=== PATIENT | male | born 1960 | race American Indian/Alaskan Native ===

== ENCOUNTER 2018-01-20 10:09 | Day surgery (SDC) | payer OTHER ==
[2017-07-07 12:53] VITALS: BMI 28.2
[2018-01-20] MEDS ORDERED: Midazolam 2 MG/2 ML VIAL ONE ×2 (14:04→14:29)
[2018-01-20] MEDS ORDERED: Iodixanol 320 MG/ML 200 ML BOTTLE IV ONE (14:05)
[2018-01-20] MEDS ORDERED: Lidocaine 2% MPF (5 ml) Inj ONE (14:05)
--- NOTE | 2018-01-21 12:01 | VAS ---
DATE: 01/20/2018 INDICATIONS: Mr. 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 The patient underwent distal abdominal aortogram for evaluation of underlying PVD. PROCEDURE PERFORMED: Distal abdominal aortogram with bilateral iliac runoff, selective bilateral iliofemoral angiogram with runoff, a 5-Afghan right femoral arterial access, and Mynx closure device for hemostasis. TECHNIQUES OF PROCEDURE: After obtaining informed consent, the patient was brought to the cardiac cath suite in post-absorptive and non-sedated state. The patient was prepped and draped in the usual sterile fashion, 2% lidocaine was used for infiltration of anesthesia. Using modified Seldinger technique, a 5-Afghan sheath was introduced into the right femoral artery. A right iliofemoral angiogram was performed and digital subtraction angiographic views of [id number] and right foot profile was obtained. Subsequently, a modified hook catheter was advanced into the abdominal aorta. Abdominal aortogram with bilateral iliac runoff was performed. The catheter was then advanced across the aortic bifurcation to the left common femoral artery. Digital subtraction angiographic views of the left SFA, left popliteal, left [id number], and the left foot profile was obtained. ANGIOGRAPHIC FINDINGS: Bilateral common iliac patent, bilateral external iliac patent, bilateral SFA and profunda femoris patent, bilateral popliteal is patent, bilateral three-vessel runoff below the knee, distal small vessel disease. IMPRESSION: Microvascular dysfunction, patent microcirculation. RECOMMENDATION: The patient can be discharged home in three hours. Aggressive medical management. Keep the patient on aspirin, Plavix, statins, VALENTIN inhibitors. The patient is to follow with Dr. Bertrand in one to two weeks' time. Thank you Dr. Mays, for letting me participate in the care of your patient. Anish Bertrand MD cc: Silvano Mays DPM
== END 2018-01-20 19:20 | disposition home or self-care (01) ==
LOC: C.CATHLAB 10:09
PROVIDERS: ATTEND Internal Medicine Interventional Cardiology
DX: I73.9 Peripheral vascular disease, unspecified (principal); L97.921 Non-pressure chronic ulcer of unspecified part of left lower leg limited to breakdown of skin
CPT/HCPCS: 36247; J1644; J2250; J3010; Q9966